=== PATIENT | female | born 1985 | race Two or more races ===

== ENCOUNTER 2016-10-05 18:56 | Inpatient (IN) | payer OTHER ==
[~2016-10-05] VITALS: Ht 165.1 cm; Wt 71.2 kg
[2016-10-05 20:11] LABS: EOSINOPHIL (%) 0.1 % (0-5); HEMATOCRIT 39.3 % (36.0-46.0); IMMATURE GRANULOCYTE (%) 0.2 % (0.0-0.7); IMMATURE GRANULOCYTE COUNT 0.4 K/uL; LYMPHOCYTE COUNT 1.7 K/uL (1.0-2.8); MCH 31.1 PG (29.0-34.0); MCHC 33.8 G/DL (30.0-36.0); MCV 91.8 FL (83-99); MEAN PLAT.VOLUME 10.7 uM^3 (9.5-12.4); MONOCYTE (%) 6.8 % (3-12); MONOCYTE COUNT 1.3 K/uL (0-0.8); NEUTROPHIL (%) 84.1 % (45-76); NEUTROPHIL COUNT 16.3 K/uL (1.8-6.4); PLATELET COUNT 272 K/uL (156-360); RBC DIS.WIDTH-CV 12.5 % (11.8-14.6); RBC DIS.WIDTH-SD 40.9 % (39-53); RED BLOOD COUNT 4.28 M/uL (3.80-5.20); WHITE BLOOD COUNT 19.4 K/uL (4.1-10.2)
[2016-10-05 20:19] LABS: CHLORIDE 107 mEq/L (99-109); POTASSIUM 4.5 mEq/L (3.7-5.4); SODIUM 142 mEq/L (136-147)
[2016-10-05 20:21] LABS: GLUCOSE 110 mg/dL (70-99)
[2016-10-05 20:22] LABS: ANION GAP 11 MEQ/L (2-14)
[2016-10-05 20:25] LABS: UREA NITROGEN (BUN) 18 mg/dL (9-23)
[2016-10-05 20:28] LABS: GFR ESTIMATE (CALCULATED) > 59 mL/min/
[2016-10-05 20:33] LABS: QUANTITATIVE HCG < 4.0 MIU/ML
[2016-10-05] MEDS ORDERED: METFORMIN HCL500 M1 PO (21:30)
[2016-10-05] MEDS ORDERED: ARMOUR THYROID30 MG PO (21:31)
[2016-10-05] MEDS ORDERED: KYLEENA1 EACH IY (21:32)
[2016-10-06] VITALS (7 sets, daily range): BP systolic 94–111; BP diastolic 51–64
[2016-10-07 03:34] VITALS: BP 100/61
[2016-10-07 06:20] LABS: HEMATOCRIT 36.5 % (36.0-46.0); MCH 29.6 PG (29.0-34.0); MCHC 31.5 G/DL (30.0-36.0); MCV 93.8 FL (83-99); MEAN PLAT.VOLUME 10.9 uM^3 (9.5-12.4); PLATELET COUNT 245 K/uL (156-360); RBC DIS.WIDTH-CV 13.1 % (11.8-14.6); RBC DIS.WIDTH-SD 44.7 % (39-53); RED BLOOD COUNT 3.89 M/uL (3.80-5.20); WHITE BLOOD COUNT 6.2 K/uL (4.1-10.2)
[2016-10-07 08:29] VITALS: BP 107/59
[2016-10-07] MEDS ORDERED: OXYCODONE HCL5 MG PO (10:55)
[2016-10-07] MEDS ORDERED: IBUPROFEN400 MG PO (10:55)
[2016-10-07] MEDS ORDERED: Tylenol Extra Streng PO (10:55)
[2016-10-07] MEDS ORDERED: CHLORZOXAZONE500 MG PO (10:55)
[2016-10-07 12:00] VITALS: BP 119/72
== END 2016-10-07 16:02 | disposition home or self-care (01) | DRG 200 ==
LOC: TRA 18:56 → EDBD 18:56 → 3EAST 21:58 → EDOF 21:58 → 3EAST 10-06 00:18
PROVIDERS: Emergency Medicine; Surgery
DX: S27.2XXA Traumatic hemopneumothorax, initial encounter (principal); S27.321A Contusion of lung, unilateral, initial encounter; S22.42XA Multiple fractures of ribs, left side, initial encounter for closed fracture; W17.81XA Fall down embankment (hill), initial encounter; Y93.23 Activity, snow (alpine) (downhill) skiing, snowboarding, sledding, tobogganing and snow tubing; Y92.838 Other recreation area as the place of occurrence of the external cause; M25.551 Pain in right hip; E03.9 Hypothyroidism, unspecified
CPT/HCPCS: 71010; 71020; 71260; 74177; 80048; 84702; 85025; 85027; 99281; 99285; J1650; J1885; J3010; J7040